=== PATIENT | male | born 1975 | race Caucasian/White ===

== ENCOUNTER 2016-12-03 20:57 | Emergency (ER) | payer MEDICAID, OTHER ==
[~2016-12-03] VITALS: Ht 175.3 cm; Wt 88.0 kg
[2016-12-04] MEDS ORDERED: KETOROLAC 30MG/ML VIAL IV ONE (00:15)
[2016-12-04] MEDS ORDERED: KETOROLAC 60MG/2ML VIAL IM ONE (00:45)
[2016-12-04 01:30] VITALS: BP 131/86
== END 2016-12-04 01:30 | disposition home or self-care (01) ==
LOC: ER 20:58
DX: M54.5 Low back pain (principal)
CPT/HCPCS: 72100; 96372; 99284; J1885